=== PATIENT | female | born 1935 | race Two or more races ===

== ENCOUNTER 2021-05-07 15:29 | Inpatient (IN) | payer MEDICAID ==
[~2021-05-07] VITALS: Ht 160 cm; Wt 56.1 kg
[~2021-05-07 15:29] MED LIST: NORPTMEDS CO
[2021-05-07] MEDS ORDERED: METOCLOPRAMIDE HCL 5MG/ml INJ 2ml VIAL IV ONE (17:00)
[2021-05-07] MEDS ORDERED: SODIUM CHLORIDE 0.9% 1,000 ML IV ONE (17:00)
[2021-05-07] MEDS ORDERED: HYDROmorphone HCL 2 MG/ML VL IV ONE (17:00)
[2021-05-07 17:48] LABS: Basophils # (auto) 0.2 10 ^3/uL (0-0.2); Basophils % (auto) 1.8 % (0.0-2.0); Eosinophils # (auto) 0 10 ^3/uL (0-0.8); Hemoglobin 11.7 g/dL (12.2-16.2); Lymphocytes # (auto) 0.9 10 ^3/uL (0.4-5.4); Mean Corpuscular Hemoglobin 31.5 pg (28.0-32.0); Mean Corpuscular Hgb Conc. 33.3 g/dL (32.0-36.0); Mean Corpuscular Volume 94.5 fL (80.0-100.0); Monocytes # (auto) 1.5 10 ^3/uL (0-1.3); Monocytes % (auto) 13.3 % (0.0-12.0); Neutrophils # (auto) 8.5 10 ^3/uL (1.6-8.6); Neutrophils % (auto) 76.9 % (37.0-80.0); Red Cell Distribution Width 15.8 % (11.8-14.3)
[2021-05-07 18:01] LABS: Urine Amorphous Crystal MOD /hpf (None Seen); Urine Bacteria FEW /hpf (None Seen); Urine Blood TRACE /uL (Negative); Urine Specific Gravity 1.015 (1.001-1.035); Urine WBC 16 /hpf (0 - 5); Urine WBC Clumps PRESENT /hpf (None Seen)
[2021-05-07 18:05] LABS: Calcium 8.5 mg/dL (8.5-10.1); Magnesium 2.6 mg/dL (1.6-2.6)
[2021-05-07 18:09] LABS: BUN/Creatinine Ratio 21.3; Bilirubin, Total 0.7 mg/dL (0.2-1.0); Total Protein 7.1 g/dL (6.4-8.2)
[2021-05-07] MEDS ORDERED: cefTRIAXone 1GM/50ML D5W 50 ML IV ONE (18:15)
[2021-05-07] MEDS ORDERED: MORPHINE SULFATE INJECTION 2 MG/ML SYRG IV PRN (18:45)
[2021-05-07] MEDS ORDERED: NITROGLYCERIN 0.4 MG SL TAB SL PRN (18:45)
[2021-05-07] MEDS ORDERED: ACETAMINOPHEN 500 MG TAB PO PRN (18:45)
[2021-05-07] MEDS ORDERED: DEXTROSE (50%) 50ML SYRG IV PRN (18:45)
[2021-05-07 18:52] LABS: INR 1.07 (0.9-1.15); Partial Thromboplastin Time 26.3 sec (23.6-33.0)
[2021-05-07] MEDS: SODIUM CHLORIDE 0.9% 1,000 ML IV SCH (22:25)
[2021-05-07] MEDS: ACCU-CHEK COMFORT CURVE STRIP VI SCH (22:52)
[2021-05-08] MEDS: MORPHINE SULFATE INJECTION 2 MG/ML SYRG IV PRN (01:09)
[2021-05-08] MEDS: ACCU-CHEK COMFORT CURVE STRIP VI SCH ×4 (06:58→22:00)
[2021-05-08 07:10] LABS: Basophils # (auto) 0.1 10 ^3/uL (0-0.2); Basophils % (auto) 0.5 % (0.0-2.0); Eosinophils # (auto) 0 10 ^3/uL (0-0.8); Eosinophils % (auto) 0.1 % (0.0-7.0); Hematocrit 32.2 % (36.0-46.0); Hemoglobin 10.7 g/dL (12.2-16.2); Lymphocytes # (auto) 1.2 10 ^3/uL (0.4-5.4); Lymphocytes % (auto) 10.4 % (10.0-50.0); Mean Corpuscular Hemoglobin 31.4 pg (28.0-32.0); Mean Corpuscular Hgb Conc. 33.3 g/dL (32.0-36.0); Mean Corpuscular Volume 94.3 fL (80.0-100.0); Monocytes # (auto) 1.2 10 ^3/uL (0-1.3); Monocytes % (auto) 9.7 % (0.0-12.0); Neutrophils # (auto) 9.4 10 ^3/uL (1.6-8.6); Neutrophils % (auto) 79.3 % (37.0-80.0); Red Blood Cells 3.41 10^6/uL (4.0-5.20); Red Cell Distribution Width 15.5 % (11.8-14.3); White Blood Cell 11.9 10^3/uL (4.4-10.8)
[2021-05-08 07:38] LABS: Albumin 2.8 g/dL (3.4-5.0); BUN/Creatinine Ratio 25.9; Potassium 3.7 mmol/L (3.5-5.1)
[2021-05-08 07:40] LABS: Bilirubin, Total 1.2 mg/dL (0.2-1.0); Total Protein 6.5 g/dL (6.4-8.2)
[2021-05-08] MEDS: SODIUM CHLORIDE 0.9% 1,000 ML IV SCH ×2 (07:43→15:03)
[2021-05-08] MEDS: cefTRIAXone 1GM/50ML D5W 50 ML IV SCH (09:25)
[2021-05-08] MEDS: ENOXAPARIN SOD 40 MG/0.4 ML SYRINGE SC SCH (09:25)
[2021-05-08] MEDS: PANTOPRAZOLE 40 MG TAB PO SCH (09:25)
[2021-05-08] MEDS ORDERED: LORazepam 2MG/ML-1ML VIAL ONE (13:11)
[2021-05-08] MEDS: LORazepam 2MG/ML-1ML VIAL IV PRN (13:18)
[2021-05-08] MEDS: Ensure HIGH Protein Chocolate 8oz Bottle PO SCH (18:00)
[2021-05-09] MEDS: SODIUM CHLORIDE 0.9% 1,000 ML IV SCH ×3 (00:45→21:13)
[2021-05-09] MEDS: LORazepam 2MG/ML-1ML VIAL IV PRN ×2 (04:15→22:30)
[2021-05-09 06:25] LABS: Basophils # (auto) 0.1 10 ^3/uL (0-0.2); Basophils % (auto) 0.9 % (0.0-2.0); Eosinophils # (auto) 0 10 ^3/uL (0-0.8); Eosinophils % (auto) 0.2 % (0.0-7.0); Hematocrit 30.7 % (36.0-46.0); Hemoglobin 10.7 g/dL (12.2-16.2); Lymphocytes # (auto) 0.8 10 ^3/uL (0.4-5.4); Lymphocytes % (auto) 8.9 % (10.0-50.0); Mean Corpuscular Hemoglobin 32.5 pg (28.0-32.0); Mean Corpuscular Hgb Conc. 34.8 g/dL (32.0-36.0); Mean Corpuscular Volume 93.6 fL (80.0-100.0); Monocytes # (auto) 0.3 10 ^3/uL (0-1.3); Monocytes % (auto) 3.2 % (0.0-12.0); Neutrophils # (auto) 7.8 10 ^3/uL (1.6-8.6); Neutrophils % (auto) 86.8 % (37.0-80.0); Red Blood Cells 3.28 10^6/uL (4.0-5.20); Red Cell Distribution Width 15.2 % (11.8-14.3)
[2021-05-09] MEDS: ACCU-CHEK COMFORT CURVE STRIP VI SCH ×4 (06:40→21:13)
[2021-05-09 06:48] LABS: Albumin 2.4 g/dL (3.4-5.0); Calcium 7.9 mg/dL (8.5-10.1); Potassium 3.4 mmol/L (3.5-5.1)
[2021-05-09 06:51] LABS: BUN/Creatinine Ratio 37.3; Bilirubin, Total 1.4 mg/dL (0.2-1.0); Total Protein 6.5 g/dL (6.4-8.2)
[2021-05-09] MEDS: SILDENAFIL CITRATE 20 MG TAB PO SCH ×3 (09:23→21:13)
[2021-05-09] MEDS: cefTRIAXone 1GM/50ML D5W 50 ML IV SCH (09:24)
[2021-05-09] MEDS: Ensure HIGH Protein Chocolate 8oz Bottle PO SCH ×3 (10:58→18:45)
[2021-05-09] MEDS: ENOXAPARIN SOD 40 MG/0.4 ML SYRINGE SC SCH (11:43)
[2021-05-09] MEDS: PANTOPRAZOLE 40 MG TAB PO SCH (11:45)
[2021-05-10] MEDS: SODIUM CHLORIDE 0.9% 1,000 ML IV SCH (06:05)
[2021-05-10] MEDS: ACCU-CHEK COMFORT CURVE STRIP VI SCH ×4 (06:54→22:00)
[2021-05-10 07:41] LABS: Basophils # (auto) 0.1 10 ^3/uL (0-0.2); Basophils % (auto) 1.2 % (0.0-2.0); Eosinophils # (auto) 0.1 10 ^3/uL (0-0.8); Eosinophils % (auto) 1.4 % (0.0-7.0); Hematocrit 32.8 % (36.0-46.0); Hemoglobin 11.1 g/dL (12.2-16.2); Lymphocytes # (auto) 1.3 10 ^3/uL (0.4-5.4); Lymphocytes % (auto) 16.3 % (10.0-50.0); Mean Corpuscular Hemoglobin 31.6 pg (28.0-32.0); Mean Corpuscular Hgb Conc. 33.8 g/dL (32.0-36.0); Mean Corpuscular Volume 93.4 fL (80.0-100.0); Monocytes # (auto) 0.4 10 ^3/uL (0-1.3); Monocytes % (auto) 5.5 % (0.0-12.0); Neutrophils # (auto) 5.9 10 ^3/uL (1.6-8.6); Neutrophils % (auto) 75.6 % (37.0-80.0); Nucleated Red Blood Cells % 0.2 %; Red Blood Cells 3.51 10^6/uL (4.0-5.20); Red Cell Distribution Width 14.9 % (11.8-14.3); White Blood Cell 7.8 10^3/uL (4.4-10.8)
[2021-05-10 07:55] LABS: Anion Gap 7 (5-15); BUN/Creatinine Ratio 40.4; Blood Urea Nitrogen 19 mg/dL (7-18); Calcium 7.7 mg/dL (8.5-10.1); Carbon Dioxide 24 mmol/L (21-32); Chloride 112 mmol/L (98-107); GFR African American 162 mL/min; GFR Non-African American 134 mL/min; Glucose 99 mg/dL (74-106); Potassium 3.3 mmol/L (3.5-5.1); Sodium 143 mmol/L (136-145)
[2021-05-10] MEDS: SILDENAFIL CITRATE 20 MG TAB PO SCH ×3 (08:39→21:47)
[2021-05-10] MEDS: Ensure HIGH Protein Chocolate 8oz Bottle PO SCH ×3 (08:39→19:30)
[2021-05-10] MEDS: cefTRIAXone 1GM/50ML D5W 50 ML IV SCH (09:27)
[2021-05-10] MEDS ORDERED: POTASSIUM CHLORIDE 40 MEQ, LIDOCAINE 1% (LOCAL ANESTH.) 4 ML in SODIUM CHL 0.9% 250 ML IV ONE (09:45)
[2021-05-10] MEDS: PANTOPRAZOLE 40 MG TAB PO SCH (10:44)
[2021-05-10] MEDS: ENOXAPARIN SOD 40 MG/0.4 ML SYRINGE SC SCH (10:44)
[2021-05-10] MEDS: ONDANSETRON HCL 4 MG/2 ML VIAL IV PRN (12:47)
[2021-05-10] MEDS: MORPHINE SULFATE INJECTION 2 MG/ML SYRG IV PRN (12:47)
[2021-05-10] MEDS: LORazepam 2MG/ML-1ML VIAL IV PRN (13:45)
[2021-05-11 04:01] LABS: Basophils # (auto) 0.2 10 ^3/uL (0-0.2); Basophils % (auto) 2.3 % (0.0-2.0); Eosinophils # (auto) 0.2 10 ^3/uL (0-0.8); Eosinophils % (auto) 3.7 % (0.0-7.0); Hematocrit 29.9 % (36.0-46.0); Hemoglobin 9.9 g/dL (12.2-16.2); Lymphocytes # (auto) 1.4 10 ^3/uL (0.4-5.4); Lymphocytes % (auto) 21.6 % (10.0-50.0); Mean Corpuscular Hemoglobin 31.4 pg (28.0-32.0); Mean Corpuscular Hgb Conc. 33.3 g/dL (32.0-36.0); Mean Corpuscular Volume 94.2 fL (80.0-100.0); Monocytes # (auto) 0.6 10 ^3/uL (0-1.3); Monocytes % (auto) 9.4 % (0.0-12.0); Neutrophils # (auto) 4.2 10 ^3/uL (1.6-8.6); Red Blood Cells 3.17 10^6/uL (4.0-5.20); Red Cell Distribution Width 14.9 % (11.8-14.3); White Blood Cell 6.7 10^3/uL (4.4-10.8)
[2021-05-11 04:38] LABS: BUN/Creatinine Ratio 42.9; Calcium 8.2 mg/dL (8.5-10.1); Potassium 3.6 mmol/L (3.5-5.1)
[2021-05-11] MEDS: ACCU-CHEK COMFORT CURVE STRIP VI SCH ×3 (06:37→22:00)
[2021-05-11] MEDS: Ensure HIGH Protein Chocolate 8oz Bottle PO SCH (09:17)
[2021-05-11] MEDS: SILDENAFIL CITRATE 20 MG TAB PO SCH ×2 (09:18→22:12)
[2021-05-11] MEDS: LORazepam 2MG/ML-1ML VIAL ONE ×2 (09:18→09:23)
[2021-05-11] MEDS: cefTRIAXone 1GM/50ML D5W 50 ML IV SCH (09:18)
[2021-05-11] MEDS: PANTOPRAZOLE 40 MG TAB PO SCH (09:19)
[2021-05-11] MEDS: ENOXAPARIN SOD 40 MG/0.4 ML SYRINGE SC SCH (09:19)
[2021-05-11] MEDS ORDERED: LORazepam 2MG/ML-1ML VIAL IV ONE (09:30)
[2021-05-11] MEDS ORDERED: LIDOCAINE 2%HCL (LOCAL ANESTH.) INJ 20ML MDV ONE (14:01)
[2021-05-11] MEDS ORDERED: fentaNYL CITRATE 100 MCG/2 ML VL ONE (14:01)
[2021-05-11] MEDS ORDERED: SODIUM CHL 0.9% 0 ML ONE (14:01)
[2021-05-11] MEDS ORDERED: MIDAZOLAM HCL 2MG/2ML 2ml VIAL (1mg/ml) ONE (14:01)
[2021-05-11] MEDS ORDERED: ANGIOMAX 250 MG VIAL IV ONE (14:01)
[2021-05-11] MEDS ORDERED: IOHEXOL 350 MG/ML 100ML IJ ONE (14:02)
[2021-05-11 22:00] VITALS: BP 131/64
[2021-05-11 23:07] VITALS: BP 131/64
[2021-05-12] VITALS (11 sets, daily range): BP systolic 90–143; BP diastolic 44–63
[2021-05-12 05:24] LABS: Basophils # (auto) 0.1 10 ^3/uL (0-0.2); Eosinophils # (auto) 0.2 10 ^3/uL (0-0.8); Eosinophils % (auto) 2.9 % (0.0-7.0); Hematocrit 29.9 % (36.0-46.0); Hemoglobin 10.2 g/dL (12.2-16.2); Lymphocytes # (auto) 1.3 10 ^3/uL (0.4-5.4); Mean Corpuscular Hemoglobin 32.1 pg (28.0-32.0); Mean Corpuscular Hgb Conc. 34.1 g/dL (32.0-36.0); Mean Corpuscular Volume 94.2 fL (80.0-100.0); Monocytes # (auto) 0.9 10 ^3/uL (0-1.3); Monocytes % (auto) 13.2 % (0.0-12.0); Neutrophils # (auto) 4.1 10 ^3/uL (1.6-8.6); Neutrophils % (auto) 62.9 % (37.0-80.0); Red Blood Cells 3.17 10^6/uL (4.0-5.20); Red Cell Distribution Width 14.7 % (11.8-14.3); White Blood Cell 6.5 10^3/uL (4.4-10.8)
[2021-05-12 05:47] LABS: BUN/Creatinine Ratio 45.2; Calcium 8.5 mg/dL (8.5-10.1); Potassium 3.5 mmol/L (3.5-5.1)
[2021-05-12] MEDS: ONDANSETRON HCL 4 MG/2 ML VIAL IV PRN ×2 (05:55→18:30)
[2021-05-12] MEDS: MORPHINE SULFATE INJECTION 2 MG/ML SYRG IV PRN (05:57)
[2021-05-12] MEDS: ACCU-CHEK COMFORT CURVE STRIP VI SCH (06:49)
[2021-05-12] MEDS: Ensure HIGH Protein Chocolate 8oz Bottle PO SCH ×3 (08:00→18:00)
[2021-05-12] MEDS: SILDENAFIL CITRATE 20 MG TAB PO SCH ×3 (08:55→20:32)
[2021-05-12] MEDS: cefTRIAXone 1GM/50ML D5W 50 ML IV SCH (08:55)
[2021-05-12] MEDS: PANTOPRAZOLE 40 MG TAB PO SCH (10:04)
[2021-05-12] MEDS: ENOXAPARIN SOD 40 MG/0.4 ML SYRINGE SC SCH (10:05)
[2021-05-12] MEDS ORDERED: ONDANSETRON HCL 4 MG/2 ML VIAL ONE (13:51)
[2021-05-12] MEDS ORDERED: MIDAZOLAM HCL 2MG/2ML 2ml VIAL (1mg/ml) ONE (13:51)
[2021-05-12] MEDS ORDERED: EPINEPHrine HCL 1 MG/1 ML AMP ONE (13:51)
[2021-05-12] MEDS ORDERED: fentaNYL CITRATE 100 MCG/2 ML VL ONE (13:51)
[2021-05-12] MEDS ORDERED: PROPOFOL 10 MG/ML 20 ML IV ONE (13:51)
[2021-05-12] MEDS ORDERED: SODIUM CHLORIDE LOCK 10 ML ONE (13:51)
[2021-05-12] MEDS ORDERED: BUPIVACAINE/DEXTROSE MPF 0.75% 2 ML AMP IT ONE (13:51)
[2021-05-12] MEDS ORDERED: HYDROCORTISONE SOD SUCC 100 MG/2ML INJ VIAL ONE (13:51)
[2021-05-12] MEDS ORDERED: ceFAZolin 1GM/50ML 100 ML IV ONE (13:53)
[2021-05-12] MEDS ORDERED: DexAMETHasone SOD PHOS 10MG/1ML VIAL INJ ONE (14:05)
[2021-05-12] MEDS ORDERED: MORPHINE SULF(PF) 0.5MG/ML 10ML VIAL ONE (14:16)
[2021-05-12] MEDS ORDERED: ACETAMINOPHEN 325 MG TAB PO PRN (15:30)
[2021-05-12] MEDS: ceFAZolin 1GM/50ML 50 ML IV SCH ×2 (15:30→18:15)
[2021-05-12] MEDS: LACTATED RINGER'S 1,000 ML IV SCH ×2 (15:30→22:45)
[2021-05-12] MEDS ORDERED: NALBUPHINE HCL 10 MG/1ml INJECTION SUBCUT ONE (15:45)
[2021-05-12] MEDS ORDERED: HYDROmorphone HCL 2 MG/ML VL IV PRN (15:45)
[2021-05-12] MEDS ORDERED: DexAMETHasone SOD PHOS 10MG/1ML VIAL INJ IV PRN (15:45)
[2021-05-12] MEDS ORDERED: NALOXONE HCL 0.4 MG/ML VIAL IV PRN (15:45)
[2021-05-12] MEDS ORDERED: diphenhdrAMINE HCL 50 MG/1 ML VL IV PRN (15:45)
[2021-05-12] MEDS: SODIUM CHLOR 0.9% PF (SALINE LOCK) 10ML VIAL/SYR IV SCH (21:35)
[2021-05-13] VITALS (17 sets, daily range): BP systolic 90–131; BP diastolic 43–75
[2021-05-13] MEDS: SODIUM CHLOR 0.9% PF (SALINE LOCK) 10ML VIAL/SYR IV SCH ×3 (05:34→22:00)
[2021-05-13 05:55] LABS: Basophils # (auto) 0 10 ^3/uL (0-0.2); Basophils % (auto) 0.1 % (0.0-2.0); Eosinophils # (auto) 0 10 ^3/uL (0-0.8); Hematocrit 27.8 % (36.0-46.0); Hemoglobin 9.5 g/dL (12.2-16.2); Lymphocytes # (auto) 0.4 10 ^3/uL (0.4-5.4); Lymphocytes % (auto) 8.3 % (10.0-50.0); Mean Corpuscular Hemoglobin 32.2 pg (28.0-32.0); Mean Corpuscular Hgb Conc. 34.3 g/dL (32.0-36.0); Mean Corpuscular Volume 93.8 fL (80.0-100.0); Monocytes # (auto) 0.3 10 ^3/uL (0-1.3); Monocytes % (auto) 4.9 % (0.0-12.0); Neutrophils # (auto) 4.6 10 ^3/uL (1.6-8.6); Neutrophils % (auto) 86.7 % (37.0-80.0); Nucleated Red Blood Cells % 0.1 %; Red Blood Cells 2.97 10^6/uL (4.0-5.20); Red Cell Distribution Width 14.7 % (11.8-14.3); White Blood Cell 5.3 10^3/uL (4.4-10.8)
[2021-05-13 06:18] LABS: BUN/Creatinine Ratio 48.9; Calcium 8.8 mg/dL (8.5-10.1)
[2021-05-13] MEDS: Ensure HIGH Protein Chocolate 8oz Bottle PO SCH ×3 (08:57→18:01)
[2021-05-13] MEDS: cefTRIAXone 1GM/50ML D5W 50 ML IV SCH (08:57)
[2021-05-13] MEDS: SILDENAFIL CITRATE 20 MG TAB PO SCH ×3 (08:57→20:03)
[2021-05-13] MEDS: PANTOPRAZOLE 40 MG TAB PO SCH (10:22)
[2021-05-13] MEDS: ENOXAPARIN SOD 30 MG/0.3 ML SYRINGE SC SCH (10:22)
[2021-05-14] MEDS: HYDROcodone-ACET 10/325MG TAB PO PRN (01:00)
[2021-05-14 05:00] VITALS: BP 119/52
[2021-05-14] MEDS: SODIUM CHLOR 0.9% PF (SALINE LOCK) 10ML VIAL/SYR IV SCH ×3 (05:25→22:33)
[2021-05-14 08:00] VITALS: BP 135/57
[2021-05-14] MEDS: Ensure HIGH Protein Chocolate 8oz Bottle PO SCH ×3 (08:47→18:11)
[2021-05-14] MEDS: cefTRIAXone 1GM/50ML D5W 50 ML IV SCH (08:48)
[2021-05-14] MEDS: SILDENAFIL CITRATE 20 MG TAB PO SCH ×3 (08:48→20:51)
[2021-05-14] MEDS: PANTOPRAZOLE 40 MG TAB PO SCH (10:22)
[2021-05-14] MEDS: ENOXAPARIN SOD 30 MG/0.3 ML SYRINGE SC SCH (10:23)
[2021-05-14 13:00] VITALS: BP 123/54
[2021-05-14 16:00] VITALS: BP 106/55
[2021-05-14 22:00] VITALS: BP 111/40
[2021-05-15 05:00] VITALS: BP 110/77
[2021-05-15] MEDS: LORazepam 2MG/ML-1ML VIAL IV PRN (05:36)
[2021-05-15 05:49] LABS: BUN/Creatinine Ratio 43.4; Calcium 7.9 mg/dL (8.5-10.1); Potassium 3.3 mmol/L (3.5-5.1)
[2021-05-15 05:58] LABS: Hemoglobin 10.2 g/dL (12.2-16.2); Mean Corpuscular Hemoglobin 32.3 pg (28.0-32.0); Mean Corpuscular Hgb Conc. 34.1 g/dL (32.0-36.0); Mean Corpuscular Volume 94.7 fL (80.0-100.0); Red Blood Cells 3.17 10^6/uL (4.0-5.20); Red Cell Distribution Width 15.3 % (11.8-14.3); White Blood Cell 9.6 10^3/uL (4.4-10.8)
[2021-05-15 06:02] LABS: Basophils % (manual) 0 (0.0-2.0); Blast Cells 0; Promyelocytes % 0; Reactive Lymphocytes 0
[2021-05-15 07:54] LABS: Band Neutrophils % (manual) 1; Eosinophils % (manual) 2 (0-7); Lymphocytes % (manual) 20 (10.0-50.0); Metamyelocytes % 1; Monocytes % (manual) 8 (0-12); Myelocytes % 1
[2021-05-15 08:00] VITALS: BP 134/67
[2021-05-15] MEDS ORDERED: POTASSIUM EFFERVESENT TAB 25 MEQ GT ONE (08:00)
[2021-05-15] MEDS: SODIUM CHLOR 0.9% PF (SALINE LOCK) 10ML VIAL/SYR IV SCH ×3 (09:40→22:00)
[2021-05-15] MEDS: Ensure HIGH Protein Chocolate 8oz Bottle PO SCH ×3 (09:40→18:00)
[2021-05-15] MEDS: PANTOPRAZOLE 40 MG TAB PO SCH (09:42)
[2021-05-15] MEDS: ENOXAPARIN SOD 30 MG/0.3 ML SYRINGE SC SCH (09:42)
[2021-05-15] MEDS: SILDENAFIL CITRATE 20 MG TAB PO SCH ×3 (09:42→20:14)
[2021-05-15 12:00] VITALS: BP 128/57
[2021-05-15] MEDS: HYDROcodone-ACET 10/325MG TAB PO PRN (13:06)
[2021-05-15 16:00] VITALS: BP 105/56
[2021-05-15 22:00] VITALS: BP 115/60
[2021-05-15] MEDS ORDERED: TEMAZEPAM 15 MG CAP PO ONE (23:15)
[2021-05-16 05:00] VITALS: BP 143/50
[2021-05-16 05:36] LABS: Basophils # (auto) 0 10 ^3/uL (0-0.2); Basophils % (auto) 0.4 % (0.0-2.0); Eosinophils # (auto) 0.2 10 ^3/uL (0-0.8); Eosinophils % (auto) 3.2 % (0.0-7.0); Hematocrit 29.1 % (36.0-46.0); Hemoglobin 9.9 g/dL (12.2-16.2); Lymphocytes # (auto) 1.7 10 ^3/uL (0.4-5.4); Lymphocytes % (auto) 21.4 % (10.0-50.0); Mean Corpuscular Hemoglobin 31.8 pg (28.0-32.0); Mean Corpuscular Hgb Conc. 34.1 g/dL (32.0-36.0); Mean Corpuscular Volume 93.3 fL (80.0-100.0); Monocytes # (auto) 1.2 10 ^3/uL (0-1.3); Neutrophils # (auto) 4.7 10 ^3/uL (1.6-8.6); Nucleated Red Blood Cells % 0.5 %; Red Blood Cells 3.12 10^6/uL (4.0-5.20); Red Cell Distribution Width 15.7 % (11.8-14.3); White Blood Cell 7.8 10^3/uL (4.4-10.8)
[2021-05-16 05:53] LABS: BUN/Creatinine Ratio 36.4; Calcium 7.9 mg/dL (8.5-10.1); Potassium 3.9 mmol/L (3.5-5.1)
[2021-05-16] MEDS: SODIUM CHLOR 0.9% PF (SALINE LOCK) 10ML VIAL/SYR IV SCH ×3 (06:01→22:09)
[2021-05-16] MEDS: Ensure HIGH Protein Chocolate 8oz Bottle PO SCH ×3 (08:00→18:00)
[2021-05-16 09:00] VITALS: BP 125/58
[2021-05-16] MEDS: PANTOPRAZOLE 40 MG TAB PO SCH (10:08)
[2021-05-16] MEDS: SILDENAFIL CITRATE 20 MG TAB PO SCH ×3 (10:08→22:09)
[2021-05-16] MEDS: ENOXAPARIN SOD 30 MG/0.3 ML SYRINGE SC SCH (10:09)
[2021-05-16] MEDS: ONDANSETRON HCL 4 MG/2 ML VIAL IV PRN (14:14)
[2021-05-16] MEDS: MORPHINE SULFATE INJECTION 2 MG/ML SYRG IV PRN ×2 (14:14→22:09)
[2021-05-16 15:45] VITALS: BP 119/54
[2021-05-16 17:22] VITALS: BP 108/53
[2021-05-16 21:38] VITALS: BP 127/49
[2021-05-17] MEDS: SODIUM CHLOR 0.9% PF (SALINE LOCK) 10ML VIAL/SYR IV SCH ×3 (04:36→21:40)
[2021-05-17 04:47] VITALS: BP 128/67
[2021-05-17 05:27] LABS: Basophils # (auto) 0.1 10 ^3/uL (0-0.2); Basophils % (auto) 0.5 % (0.0-2.0); Eosinophils # (auto) 0.3 10 ^3/uL (0-0.8); Eosinophils % (auto) 2.9 % (0.0-7.0); Hematocrit 29.5 % (36.0-46.0); Hemoglobin 10.2 g/dL (12.2-16.2); Lymphocytes # (auto) 1.5 10 ^3/uL (0.4-5.4); Lymphocytes % (auto) 14.7 % (10.0-50.0); Mean Corpuscular Hemoglobin 32.1 pg (28.0-32.0); Mean Corpuscular Hgb Conc. 34.4 g/dL (32.0-36.0); Mean Corpuscular Volume 93.3 fL (80.0-100.0); Monocytes # (auto) 1.4 10 ^3/uL (0-1.3); Monocytes % (auto) 13.8 % (0.0-12.0); Neutrophils # (auto) 6.7 10 ^3/uL (1.6-8.6); Neutrophils % (auto) 68.1 % (37.0-80.0); Nucleated Red Blood Cells % 0.1 %; Red Blood Cells 3.16 10^6/uL (4.0-5.20); Red Cell Distribution Width 15.2 % (11.8-14.3); White Blood Cell 9.9 10^3/uL (4.4-10.8)
[2021-05-17 05:53] LABS: Calcium 8.1 mg/dL (8.5-10.1); Potassium 4.2 mmol/L (3.5-5.1)
[2021-05-17 05:56] LABS: BUN/Creatinine Ratio 43.8
[2021-05-17] MEDS: SILDENAFIL CITRATE 20 MG TAB PO SCH (08:47)
[2021-05-17] MEDS: PANTOPRAZOLE 40 MG TAB PO SCH (08:47)
[2021-05-17] MEDS: Ensure HIGH Protein Chocolate 8oz Bottle PO SCH ×3 (08:47→17:32)
[2021-05-17] MEDS: traMADol HCL 50 MG TAB PO PRN ×2 (08:47→16:37)
[2021-05-17] MEDS: ENOXAPARIN SOD 30 MG/0.3 ML SYRINGE SC SCH (08:48)
[2021-05-17 09:00] VITALS: BP 90/51
[2021-05-17 13:00] VITALS: BP 108/44
[2021-05-17 17:00] VITALS: BP 129/49
[2021-05-17 22:00] VITALS: BP 127/66
[2021-05-18 04:46] VITALS: BP 126/63
[2021-05-18] MEDS: SODIUM CHLOR 0.9% PF (SALINE LOCK) 10ML VIAL/SYR IV SCH ×3 (04:55→21:53)
[2021-05-18 06:18] LABS: Calcium 8.3 mg/dL (8.5-10.1); Potassium 4.3 mmol/L (3.5-5.1)
[2021-05-18 06:21] LABS: BUN/Creatinine Ratio 36.7
[2021-05-18 08:00] VITALS: BP 109/55
[2021-05-18] MEDS: Ensure HIGH Protein Chocolate 8oz Bottle PO SCH ×3 (09:07→18:05)
[2021-05-18] MEDS: ENOXAPARIN SOD 30 MG/0.3 ML SYRINGE SC SCH (09:42)
[2021-05-18] MEDS: PANTOPRAZOLE 40 MG TAB PO SCH (09:42)
[2021-05-18 12:00] VITALS: BP 113/52
[2021-05-18 16:00] VITALS: BP 100/51
[2021-05-18 21:56] VITALS: BP 129/68
[2021-05-19 05:03] VITALS: BP 140/65
[2021-05-19] MEDS: HYDROcodone-ACET 10/325MG TAB PO PRN (05:10)
[2021-05-19] MEDS: SODIUM CHLOR 0.9% PF (SALINE LOCK) 10ML VIAL/SYR IV SCH ×2 (05:45→13:41)
[2021-05-19 09:00] VITALS: BP 126/68
[2021-05-19] MEDS: PANTOPRAZOLE 40 MG TAB PO SCH (09:03)
[2021-05-19] MEDS: Ensure HIGH Protein Chocolate 8oz Bottle PO SCH ×3 (09:03→17:49)
[2021-05-19] MEDS: ENOXAPARIN SOD 30 MG/0.3 ML SYRINGE SC SCH (09:04)
[2021-05-19 13:00] VITALS: BP 130/50
[2021-05-19 16:42] VITALS: BP 126/62
== END 2021-05-19 19:45 | disposition home health service (06) | DRG 308 ==
LOC: EDBD 15:29 → ER 15:29 → TELE 18:37 → TELE-CENTR 05-11 18:37 → CENTRAL 05-14 09:47
PROVIDERS: ADMIT Internal Medicine; ATTEND Internal Medicine Pulmonary Disease
PROC: 4A023N8 Measurement of Cardiac Sampling and Pressure, Bilateral, Percutaneous Approach (ICD-10-PCS; 2021-05-11)
PROC: B2111ZZ Fluoroscopy of Multiple Coronary Arteries using Low Osmolar Contrast (ICD-10-PCS; 2021-05-11)
PROC: B2151ZZ Fluoroscopy of Left Heart using Low Osmolar Contrast (ICD-10-PCS; 2021-05-11)
PROC: B41F1ZZ Fluoroscopy of Right Lower Extremity Arteries using Low Osmolar Contrast (ICD-10-PCS; 2021-05-11)
PROC: 0QS636Z Reposition Right Upper Femur with Intramedullary Internal Fixation Device, Percutaneous Approach (ICD-10-PCS; principal; 2021-05-12 14:12)
DX: S72.141A Displaced intertrochanteric fracture of right femur, initial encounter for closed fracture (principal); N17.0 Acute kidney failure with tubular necrosis; G92 Toxic encephalopathy; I27.20 Pulmonary hypertension, unspecified; L89.152 Pressure ulcer of sacral region, stage 2; E44.0 Moderate protein-calorie malnutrition; L89.523 Pressure ulcer of left ankle, stage 3; D63.8 Anemia in other chronic diseases classified elsewhere; E88.09 Other disorders of plasma-protein metabolism, not elsewhere classified; Z20.822 Contact with and (suspected) exposure to COVID-19; G62.9 Polyneuropathy, unspecified; N18.9 Chronic kidney disease, unspecified; Z90.710 Acquired absence of both cervix and uterus; I25.10 Atherosclerotic heart disease of native coronary artery without angina pectoris; N39.0 Urinary tract infection, site not specified; S31.000A Unspecified open wound of lower back and pelvis without penetration into retroperitoneum, initial encounter; W18.39XA Other fall on same level, initial encounter; Y93.89 Activity, other specified; Y92.098 Other place in other non-institutional residence as the place of occurrence of the external cause; Y99.8 Other external cause status; Z68.1 Body mass index [BMI] 19.9 or less, adult; Z73.9 Problem related to life management difficulty, unspecified
CPT/HCPCS: 36415; 71045; 73501; 73502; 75710; 76000; 80048; 80053; 81001; 82962; 83036; 83735; 85007; 85025; 85027; 85610; 85730; 87081; 87086; 87426; 93005; 93306; 93453; 96374; 97110; 97116; 97163; 97530; 99152; 99153; A4565; C1713; C1751; G0378; J0171; J0690; J0696; J1100; J2001; J2250; J2405; J2704